=== PATIENT | male | born 1950 | race Asian ===

== ENCOUNTER → 2019-12-05 | Outpatient (CLI) | payer MEDICARE, OTHER ==
[~2019-12-05] MED LIST: ASCO500T9 PO; ATOR-2 PO; CEFD300C37 PO; CHOL10003 PO; DAPA10TA PO; DICL100G19 TP; GUAI200T37 PO; INSU100I11 SQ-INSULIN; MELA5TAB14 PO; METF10007 PO; METR500T PO; PRED20TA PO; SITA100T PO; ZINC220C7 PO
== END | disposition home or self-care (01) ==
LOC: CVU 14:34
PROVIDERS: ATTEND Internal Medicine Cardiovascular Disease
DX: I07.1 Rheumatic tricuspid insufficiency (principal); R07.89 Other chest pain; I10 Essential (primary) hypertension; R06.02 Shortness of breath
CPT/HCPCS: 93306; 93356

== ENCOUNTER → 2020-01-19 | Outpatient (CLI) | payer OTHER, MEDICARE ==
[~2020-01-19] MED LIST changes: +REGADENOSON 0.4 MG/5 ML SYRINGE ONE
== END | disposition home or self-care (01) ==
LOC: CFH 07:41
PROVIDERS: ATTEND Internal Medicine Cardiovascular Disease
DX: R06.02 Shortness of breath (principal); R07.9 Chest pain, unspecified; I10 Essential (primary) hypertension
CPT/HCPCS: 78452; 93017; A9502; J2785